=== PATIENT | male | born 1955 | race Two or more races ===

== ENCOUNTER 2018-12-29 10:49 | Outpatient (CLI) | payer OTHER | END 2018-12-29 10:50 | disposition critical access hospital (66) | LOC: EMS 10:49 | PROVIDERS: ATTEND Surgery | DX: S01.01XA Laceration without foreign body of scalp, initial encounter (principal); M25.512 Pain in left shoulder; W17.89XA Other fall from one level to another, initial encounter; Y92.62 Dock or shipyard as the place of occurrence of the external cause; Y99.0 Civilian activity done for income or pay | CPT/HCPCS: A0425; A0429 ==

== ENCOUNTER 2018-12-29 11:14 | Emergency (ER) | payer OTHER ==
[2018-12-29] MEDS ORDERED: BUFFERED LIDOCAINE 10 ML SYRINGE SUBQ STA (12:19)
[2018-12-29] MEDS ORDERED: HYDROcod/ACETAM 5/325 MG TABLET PO STA (12:19)
[2018-12-29] MEDS ORDERED: TETANUS/DIPHTHERIA/PERTUSSIS 0.5 ML SYRINGE IM ONE (12:19)
--- NOTE | 2018-12-29 12:21 | ED Physician Documentation ---
PD HPI HEAD INJURY - Stated complaint Stated Complaint: 5 FT FALL - Chief complaint Chief Complaint: Trauma Hd/Nk - History obtained from History obtained from: Patient, Friend, EMS - History of Present Illness Mechanism of head injury: Fell (He was about 5 feet on a ladder and his boot got caught in something and he fell off to the left. He has a head laceration but denies headache. He has more pain in the left shoulder. No back pain or loss of consciousness. There was no syncope. Last tetanus shot was 7 to 10 years ago.) Review of Systems Ten Systems: 10 systems reviewed and negative Cardiac: reports: Reviewed and negative Respiratory: reports: Reviewed and negative PD PAST MEDICAL HISTORY - Past Medical History Past Medical History: Yes Cardiovascular: High cholesterol - Past Surgical History Past Surgical History: No - Present Medications Home Medications: Ambulatory Orders Medication Instructions Recorded Confirmed Hydrocodone/Acetaminophen 1 - 2 each PO Q6H PRN #14 tablet 12/29/18 [Hydrocodon-Acetaminophen 5-325] Meclizine HCl 25 mg PO Q6H PRN #20 tab.chew 12/29/18 - Allergies Allergies/Adverse Reactions: Allergies Allergy/AdvReac Type Severity Reaction Status Date / Time No Known Drug Allergies Allergy Verified 12/29/18 11:23 - Social History Does the pt smoke?: No Smoking Status: Never smoker Does the pt drink ETOH?: No Does the pt have substance abuse?: No - Immunizations Immunizations are current?: Yes PD ED PE NORMAL - Vitals Vital signs reviewed: Yes - General General: Alert and oriented X 3, No acute distress - HEENT HEENT: PERRL, EOMI, Other (There is a laceration with hematoma on the parieto- occipital area) - Neck Neck: Supple, no meningeal sign, No bony TTP - Cardiac Cardiac: RRR, No murmur - Respiratory Respiratory: No respiratory distress, Clear bilaterally - Abdomen Abdomen: Non tender, Non distended - Back Back: No CVA TTP, No spinal TTP - Derm Derm: Normal color, Warm and dry - Extremities Extremities: Other (Some tenderness of the top and posterior of the left shoulder with an ecchymosis forming over the superior part of the scapula. Good range of motion and strength. 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 Eye Opening: Spontaneous Motor: Obeys Commands Verbal: Oriented GCS Score: 15 Results - Vitals Vitals: Vital Signs - 24 hr 12/29/18 11:18 Temperature 36.6 C Heart Rate 78 Respiratory 19 Rate Blood Pressure 130/77 O2 Saturation 96 Oxygen O2 Source Room air - Rads (name of study) CT head, L shoulder XR Radiology: EMP read contemporaneously (No ICH, frx) Procedures - Laceration (location) scalp Length in cm: 2 Wound type: Linear, Superficial Anesthesia: Lidocaine 1%, With bicarb Wound Preparation: Irrigated copiously NS Skin layer closure: [place] (3) Other: Tetanus booster given Complexity: Simple Departure - Departure Disposition: 01 Home, Self Care Clinical Impression: Concussion Qualifiers: Encounter type: initial encounter Loss of consciousness presence/duration: without LOC Qualified Code(s): S06.0X0A - Concussion without loss of consciousness, initial encounter Injury of back Qualifiers: Encounter type: initial encounter Qualified Code(s): S39.92XA - Unspecified injury of lower back, initial encounter Fall from ladder Qualifiers: Encounter type: initial encounter Qualified Code(s): W11.XXXA - Fall on and from ladder, initial encounter Scalp laceration Qualifiers: Encounter type: initial encounter Qualified Code(s): S01.01XA - Laceration without foreign body of scalp, initial encounter Condition: Good Record reviewed to determine appropriate education?: Yes Health Concerns: Fall from ladder with scalp laceration and head injury, with left shoulder pain. Plan of Treatment: Scalp laceration was stapled. Needs to follow-up with his physician in 10 days for staple removal. Developed vertigo from the head injury while the department for which we treated with meclizine and pain with hydrocodone. Care Goals: improve sx Assessment: as above Instructions: ED Head Injury Closed Prescriptions: Hydrocodone/Acetaminophen [Hydrocodon-Acetaminophen 5-325] 1 - 2 each PO Q6H PRN #14 tablet PRN Reason: pain Meclizine HCl 25 mg PO Q6H PRN #20 tab.chew PRN Reason: Dizziness
--- NOTE | 2018-12-29 12:59 | CT Report ---
Reason: head inj Procedure Date: 12/29/2018 Accession Number: [id number] / [id number] Procedure: CT - HEAD WO CPT Code: FULL RESULT: EXAM: CT HEAD EXAM DATE: 12/29/2018 12:52 PM. CLINICAL HISTORY: Acute pain due to trauma. COMPARISON: None. TECHNIQUE: Multiaxial CT images were obtained from the foramen magnum to the vertex. Reformats: Sagittal and coronal. IV contrast: None. In accordance with CT protocol optimization, one or more of the following dose reduction techniques were utilized for this exam: automated exposure control, adjustment of mA and/or KV based on patient size, or use of iterative reconstructive technique. FINDINGS: Parenchyma: No intraparenchymal hemorrhage. No evidence of mass, midline shift, or CT findings of infarction. Silvestre-white differentiation is distinct. Extraaxial Spaces: Normal for age. No subdural or epidural collections identified. Ventricles: Normal in size and position. Sinuses and Orbits: Imaged paranasal sinuses, orbits, and mastoids show no significant abnormality. Bones: No evidence of fracture or calvarial defect. Other: Scalp contusion is seen overlying the left posterior calvarium. IMPRESSION: No acute intracranial abnormality. Skull intact. [facility]
--- NOTE | 2018-12-29 13:00 | XRAY Report ---
Reason: L shoulder pain fall Procedure Date: 12/29/2018 Accession Number: [id number] / [id number] Procedure: XR - Shoulder 3 View LT CPT Code: FULL RESULT: EXAM: LEFT SHOULDER RADIOGRAPHY EXAM DATE: 12/29/2018 12:36 PM. CLINICAL HISTORY: Left shoulder pain. COMPARISON: None. TECHNIQUE: 3 views. FINDINGS: Bones: Normal. No fracture or bone lesion. Joints: Normal alignment. Mild degenerative changes are seen primarily in the AC joint. Soft tissues: The visualized hemithorax is unremarkable. No soft tissue swelling. IMPRESSION: No acute findings. Mild DJD seen. RADIA
[2018-12-29] MEDS ORDERED: MECLIZINE 12.5 MG TABLET PO STA (13:02)
[2018-12-29 13:59] VITALS: BP 129/60
== END 2018-12-29 14:16 | disposition home or self-care (01) ==
LOC: ED 11:14
DX: S06.0X0A Concussion without loss of consciousness, initial encounter (principal); S39.92XA Unspecified injury of lower back, initial encounter; S01.01XA Laceration without foreign body of scalp, initial encounter; W11.XXXA Fall on and from ladder, initial encounter
CPT/HCPCS: 12001; 70450; 73030; 90471; 90715; 99283; A9270